=== PATIENT | male | born 1965 | race Two or more races ===

== ENCOUNTER → 2024-02-28 | Outpatient (CLI) | payer MEDICARE, MEDICAID, SELFPAY ==
[2024-02-28 11:50] LABS: Prostate Specific Antigen 20.89 ng/mL (0-4.00)
== END | disposition home or self-care (01) ==
LOC: COPL 10:21
PROVIDERS: PCP Physician Assistant; Referring Provider Surgery; Visit Provider Surgery
DX: N40.1 Benign prostatic hyperplasia with lower urinary tract symptoms (principal)
CPT/HCPCS: 36415; 84153

== ENCOUNTER 2024-03-29 06:25 | Day surgery (SDC) | payer MEDICARE, MEDICAID, SELFPAY ==
--- NOTE | 2024-03-27 07:00 | EKG_ITS ---
[facility] Test Date: 2024-03-27 Pat Name: TON CARSON Department: Room: - Gender: Male Fisher Trawl Line: RT STUDENT : 1965 Requested By: Pal Vines Order Number: [id number] Reading MD: Pal Vines Measurements Intervals [place] Rate: 71 P: 42 AR: 168 QRS: 7 QRSD: 84 T: 37 QT: 351 QTc: 382 Interpretive Statements SINUS RHYTHM SEPTAL MYOCARDIAL INFARCTION , OF INDETERMINATE AGE Compared to ECG 10/29/2021 09:55:07 Myocardial infarct finding now present /store/S0/[id number]/ecg/[id number].pdf
[2024-03-27 07:41] VITALS: BMI 25.8
[2024-03-27 08:20] LABS: Collection Type, Urine Clean Catch; Squamous Epithelial Cell,Urine 0 /hpf (0-5)
[2024-03-27 08:47] LABS: Basophils % (Auto) 0 % (0-2.5); Eosinophils # (Auto) 0.1 Thou/mm3 (0.0-0.5); Eosinophils % (Auto) 2 % (0-10); Hematocrit 46.2 % (41.0-53.0); Hemoglobin 15.7 g/dL (13.5-16.0); Immature Granulocytes % (Auto) 0 % (0-0); Immature Granulocytes Auto 0.01 Thou/mm3 (0.00-0.00); Lymphocytes # (Auto) 2.4 Thou/mm3 (1.0-4.8); Lymphocytes % (Auto) 35 % (10-50); Mean Corpuscular Hemoglobin 29.6 pg (25.0-35.0); Mean Corpuscular Volume 87 fL (80-100); Monocytes # (Auto) 0.6 Thou/mm3 (0.0-0.8); Monocytes % (Auto) 9 % (0-12); Neutrophils # (Auto) 3.7 Thou/mm3 (1.8-7.7); Neutrophils % (Auto) 54 % (37-80); Nucleated Red Blood Cell % 0 /100 WBC (0); Platelet Count 369 Thou/mm3 (140-440); RDW Standard Deviation 40.9 fL (35.1-43.9); White Blood Count 6.9 Thou/mm3 (3.8-10.6)
[2024-03-27 08:51] LABS: Bilirubin,Urine Negative (Negative); Blood,Urine Negative (Negative); Clarity,Urine Clear (Clear/Hazy); Color,Urine Lt-Yellow (Lt Yel-Yel); Glucose, Urine Negative (Negative); Ketones,Urine Negative (Negative); Leukocyte Esterase,Urine Negative (Negative); Nitrite,Urine Negative (Negative); Protein,Urine Negative (Neg - Trace); RBC,Urine 3 /hpf (0-3); Specific Gravity,Urine 1.012 (1.001-1.035); Urobilinogen,Urine Negative mg/dL (0.0-1.0); WBC,Urine 1 /hpf (0-5)
[2024-03-27 09:04] LABS: Alanine Aminotransferase 18 U/L (10-49); Albumin, Serum 4.9 gm/dL (3.5-5.0); Albumin/Globulin Ratio 1.7 (1.2-2.2); Alkaline Phosphatase 100 U/L (46-116); Anion Gap 6 (7-16); Aspartate Amino Transferase 17 U/L (0-34); BUN/Creatinine Ratio 10 Ratio (12-20); Bilirubin,Total 0.4 mg/dL (0.3-1.2); Blood Urea Nitrogen 9 mg/dL (9-23); Calcium 9.6 mg/dL (8.3-10.6); Calcium (Corrected) 9.6 mg/dL (8.5-10.1); Carbon Dioxide 30.8 mMol/L (20.0-31.0); Chloride 100 mMol/L (98-107); Creatinine (Component) 0.9 mg/dL (0.6-1.3); Estimated Creatinine Clearance 88.4 mL/min (>60); Globulin 2.9 gm/dL (2.3-3.5); Glucose 73 mg/dL (74-106); Osmolality,Calculated 271 (275-295); Potassium 3.8 mMol/L (3.4-5.1); Sodium 137 mMol/L (136-145); Total Protein 7.8 gm/dL (5.7-8.2); eGFR > 60 See Note
--- NOTE | 2024-03-28 10:17 | ESHP_ITS ---
RE: TON CARSON : 1965 DATE OF ADMISSION: 03/29/2024 HISTORY OF PRESENT ILLNESS: A 58-year-old male who was referred to me with a history of elevated PSA. He lives in a [facility]. His PSA was 14. The patient did have a biopsy done by Dr. Friend and that was reported to be no cancer, but the PSA has been rising. It is now 20.89. He is now scheduled to have cystoscopy, transrectal prostatic ultrasound with ultrasound guided prostatic needle biopsy. He had a history of cerebral palsy. He is wheelchair bound. PAST SURGICAL HISTORY: None except he had a prostate needle biopsy done by Dr. Friend, which was reported to be negative for any cancer. PAST MEDICAL HISTORY: He has a history of seizure disorder. ALLERGIES: NONE KNOWN. HOME MEDICATIONS: He takes, 1. Gemtesa. 2. Baclofen. 3. Lisinopril. 4. Seizure medications. PHYSICAL EXAMINATION: HEENT: Normal. NECK: Supple. LUNGS: Clear. CARDIOVASCULAR: Heart sounds are normal. ABDOMEN: Soft without any organomegaly. No guarding. No rigidity. GENITOURINARY: Phallus is normal. Testes are down in scrotum. RECTAL: Reveals small prostate without any hard nodules. IMPRESSION: 1. Elevated prostatic specific antigen. 2. Cerebral palsy. 3. Wheelchair-bound patient. 4. Elevated PSA which was 14, then 15.18 and now 20.89. PLAN: Cystoscopy. Transrectal prostatic ultrasound with ultrasound-guided prostatic needle biopsy. Planned procedures, risks, and complications have been discussed with the patient's caretakers. They have understood them and agreed to proceed. DT: 09:16:01 TT: 10:16:00 Ref: [id number] - TID: [id number]
[2024-03-29] VITALS (9 sets, daily range): BP systolic 104–141; BP diastolic 66–92; PULSE 51–69; RESP 12–20; TEMP 36.1–37; O2SAT 94–100; BMI 26.2
[2024-03-29] MEDS: RINGERS LACTATED 1000 ML 1,000 ML 20 ML IV (07:00)
--- NOTE | 2024-03-29 09:19 | SUR.PHASEI ---
pt received from OR in recovery bay 1. pt obtunded, breathing unlabored on oxymask 8l, oral airway in place. v/s stable. report received from Dr. Dumont and Hussein Gonsales.
--- NOTE | 2024-03-29 10:02 | SUR.PHASEII ---
pt able to tolerate oral fluids without difficulty swallowing or nausea/vomiting.
--- NOTE | 2024-03-29 10:29 | ESOP_ITS ---
RE: TON CARSON : 1965 DATE OF OPERATION: 03/29/2024 PREOPERATIVE DIAGNOSES: Rising prostate-specific antigen, the patient with cerebral palsy, skilled nursing patient, wheelchair bound. POSTOPERATIVE DIAGNOSES: Rising prostate-specific antigen, the patient with cerebral palsy, skilled nursing patient, wheelchair bound. PROCEDURES PERFORMED: Cystoscopy, urethral dilatation, transrectal prostatic ultrasound with ultrasound-guided prostatic needle biopsy. ANESTHESIA: General. INDICATION: The patient is a 58-year-old gentleman from skilled nursing with cerebral palsy. He has been having a high PSA. His PSA used to be 14, now it is 20.89. He was a patient of Dr. Friend and had a biopsy done before, which was reported to be benign. In view of his rising PSA, he is now scheduled to have cystoscopy and transrectal prostatic ultrasound with ultrasound-guided prostatic needle biopsy. The patient also has some prostatism. Planned procedure, risks, and complications have been discussed with the patient's pompom maker. They have understood them and agreed to proceed. DESCRIPTION OF PROCEDURE: After the patient was brought to the operating table under adequate general anesthesia and dorsal lithotomy position, parts were prepped and draped in the usual fashion. Cystoscopy was then carried out, which revealed adequate urethral meatus, normal-appearing urethra, moderate enlargement of prostate bilobed. Prostate residual urine 3 ounces, yellow and clear. There are no intravesical stones or tumors. Ureteral orifices are found to be normal in position and appearance. Urine was sent for culture and sensitivity examination. Scope was withdrawn. The patient was then turned in left lateral position. Transrectal prostatic ultrasound was carried out. Biopsies were obtained from both lobes using ultrasound guidance. Prostatic volume was measured at 81.8 cubic cm which seemed to be a little bit higher than the rectal examination findings and the cystoscopy findings. Procedure was then terminated. The patient tolerated the entire procedure well and left the room in good condition. DT: 09:33:06 TT: 10:28:00 Ref: [id number] - TID: [id number]
--- NOTE | 2024-03-29 10:53 | SUR.PHASEII ---
pt awake and alert, breathing unlabored on room air. v/s stable. pt able to transfer to wheelchair with assistance. d/c instructions given with childcare worker Juany, all questions answered. pt d/c via wheelchair with all belongings.
== END 2024-03-29 10:53 | disposition home or self-care (01) ==
PROVIDERS: Anesthesiology; Referring Provider Surgery; Visit Provider Surgery
PROC: 0TJB8ZZ Inspection of Bladder, Via Natural or Artificial Opening Endoscopic (ICD-10-PCS; CPT 52000; principal; 2024-03-29 08:30)
PROC: (CPT 55700; 2024-03-29 08:30)
DX: N40.1 Benign prostatic hyperplasia with lower urinary tract symptoms (principal); R97.20 Elevated prostate specific antigen [PSA]; G40.909 Epilepsy, unspecified, not intractable, without status epilepticus; G80.9 Cerebral palsy, unspecified; Z99.3 Dependence on wheelchair; Z01.810 Encounter for preprocedural cardiovascular examination
CPT/HCPCS: 52281; 55700; 36415; 76942; 80053; 81001; 85025; 87086; 93005; A4217; A4649; J0694; J2250; J2704; J3010; J7120

== ENCOUNTER → 2024-09-11 | Outpatient (CLI) | payer MEDICARE, MEDICAID, SELFPAY ==
[2024-09-11 11:52] LABS: Prostate Specific Antigen 16.15 ng/mL (0-4.00)
== END | disposition home or self-care (01) ==
LOC: COPL 10:57
PROVIDERS: PCP Physician Assistant; Referring Provider Surgery; Visit Provider Surgery
DX: N40.1 Benign prostatic hyperplasia with lower urinary tract symptoms (principal); R97.20 Elevated prostate specific antigen [PSA]
CPT/HCPCS: 36415; 84153